=== PATIENT | male | born 2005 | race African-American/Black ===

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

== ENCOUNTER 2024-07-15 03:57 | Emergency (ER) | payer OTHER, SELFPAY ==
[2024-07-15] MEDS ORDERED: Ibuprofen 800 MG TAB ONE (04:27)
[2024-07-15] MEDS ORDERED: Penicillin V Potassium 250 MG TAB PO SCH (04:30)
== END 2024-07-15 04:32 | disposition home or self-care (01) ==
LOC: ERS 03:57
DX: K04.01 Reversible pulpitis (principal)
CPT/HCPCS: 99282

== ENCOUNTER 2024-07-16 03:53 | Emergency (ER) | payer SELFPAY ==
[2024-07-16] MEDS ORDERED: Bupivacaine 0.25% 10 ML VIAL ONE (04:09)
[2024-07-16] MEDS ORDERED: Lidocaine Viscous Sol 2% 15 ml UD Cup ONE (04:17)
== END 2024-07-16 04:37 | disposition home or self-care (01) ==
LOC: ERS 03:53
DX: K02.9 Dental caries, unspecified (principal); K04.01 Reversible pulpitis
CPT/HCPCS: 64400; J0665